=== PATIENT | male | born 1990 | race Caucasian/White ===

== ENCOUNTER 2020-07-11 18:17 | Emergency (ER) | payer MEDICAID ==
[~2020-07-11] VITALS: Ht 175.3 cm; Wt 98.6 kg
[~2020-07-11 18:17] MED LIST: MOT200T PO; PENI500T2 PO; TRAM50TA2 PO
[2020-07-11 18:47] VITALS: BP 136/89
[2020-07-11] MEDS ORDERED: DOXY100C2 PO (19:21)
[2020-07-11] MEDS ORDERED: CefTRIAXone 250MG IM Kit w/LIDOcaine IM STA (20:00)
[2020-07-11] MEDS ORDERED: METR-159 PO (20:12)
== END 2020-07-11 19:43 | disposition home or self-care (01) ==
LOC: ER 18:18
DX: L02.416 Cutaneous abscess of left lower limb (principal); F12.90 Cannabis use, unspecified, uncomplicated; E03.9 Hypothyroidism, unspecified; Z56.0 Unemployment, unspecified; Z72.89 Other problems related to lifestyle; Z79.2 Long term (current) use of antibiotics; Z79.899 Other long term (current) drug therapy
CPT/HCPCS: 96372; 99283; J0696

== ENCOUNTER 2022-06-26 10:02 | Emergency (ER) | payer MEDICAID ==
[~2022-06-26] VITALS: Ht 180.3 cm; Wt 120.0 kg
[2022-06-26 10:07] VITALS: BP 145/70
[2022-06-26] MEDS ORDERED: LIDOCAINE 2%/EPI 1:100,000 inj. Multi-dose 20 ML VIAL IJ ONE (10:30)
[2022-06-26] MEDS ORDERED: SULF1TAB49 PO (12:09)
[2022-06-26] MEDS ORDERED: bacitracin 15gm ointment TP ONE (12:15)
== END 2022-06-26 12:43 | disposition home or self-care (01) ==
LOC: ER 10:02
DX: L02.811 Cutaneous abscess of head [any part, except face] (principal); F12.90 Cannabis use, unspecified, uncomplicated; Z56.0 Unemployment, unspecified; Z72.89 Other problems related to lifestyle
CPT/HCPCS: 10060; 99283; A6449

== ENCOUNTER 2023-04-19 16:56 | Emergency (ER) | payer MEDICAID ==
[~2023-04-19] VITALS: Ht 177.8 cm; Wt 133.8 kg
[2023-04-19 17:01] VITALS: BP 154/110; PULSE 74; TEMP 97.9; O2SAT 99
[2023-04-19] MEDS ORDERED: CYCL-1 PO (17:15)
[2023-04-19] MEDS ORDERED: ketorolac trometh inj. 60 MG/2 ML VIAL IM ONE (17:15)
[2023-04-19 17:24] VITALS: RESP 17
--- NOTE | 2023-04-19 18:36 | NUR ---
I AGREE WITH THE ASSESSMENT PER Daniel POWER LVN
== END 2023-04-19 17:36 | disposition home or self-care (01) ==
LOC: ER 16:56
DX: S13.4XXA Sprain of ligaments of cervical spine, initial encounter (principal); V89.2XXA Person injured in unspecified motor-vehicle accident, traffic, initial encounter; Y93.89 Activity, other specified; Y92.89 Other specified places as the place of occurrence of the external cause; Y99.8 Other external cause status
CPT/HCPCS: 96372; 99283; J1885

== ENCOUNTER 2023-04-20 14:06 | Emergency (ER) | payer OTHER, MEDICAID ==
[~2023-04-20] VITALS: Ht 177.8 cm; Wt 133.0 kg
[~2023-04-20 14:06] MED LIST changes: +CYCL-1 PO
[2023-04-20 14:27] VITALS: BP 141/85; PULSE 86; RESP 16; TEMP 97.3; O2SAT 97
[2023-04-20] MEDS ORDERED: cyclobenzaprine 10mg tablet PO ONE (16:15)
== END 2023-04-20 17:46 | disposition home or self-care (01) ==
LOC: ER 14:08
DX: S13.4XXA Sprain of ligaments of cervical spine, initial encounter (principal); E03.9 Hypothyroidism, unspecified; X58.XXXA Exposure to other specified factors, initial encounter; Y93.89 Activity, other specified; Y92.89 Other specified places as the place of occurrence of the external cause; Y99.8 Other external cause status
CPT/HCPCS: 72040; 99283